=== PATIENT | female | born 1995 | race Hispanic/Latino ===

== ENCOUNTER 2017-01-17 07:57 | Emergency (ER) | payer MEDICAID, OTHER ==
[2017-01-17 08:22] VITALS: TEMP 98.2
[2017-01-17 08:42] VITALS: BMI 36.6
[2017-01-17] MEDS ORDERED: Sodium Chloride 0.9% 1,000 ML IV STA (09:09)
[2017-01-17 10:10] LABS: BASO # 0.01 K/mm3 (0.0-2.0); BASO % 0.1 % (0.0-3.0); EOS # 0.1 (0.0-0.7); EOS % 0.8 % (1.5-5.0); GRAN # 9.97 (1.4-6.5); GRAN % 86.3 % (50.0-68.0); HEMOGLOBIN 9.4 gm/dL (12.0-16.0); LYMPH # 0.7 (1.2-3.4); LYMPH % 6.2 % (22.0-35.0); MEAN CELL VOLUME 52.5 fL (80.0-105.0); MEAN CORPUSCULAR HGB CONC 28.7 g/dl (31.0-37.0); MONO # 0.8 (0.1-0.6); MONO % 6.6 % (1.0-6.0); PLATELET COUNT 474 10^3/uL (120.0-450.0); RBC 6.25 10^6/uL (3.5-6.1); RED CELL DISTRIBUTION WIDTH 22.9 % (11.5-14.5); WHITE BLOOD COUNT 11.6 10^3/ul (4.5-11.0)
[2017-01-17 10:19] LABS: ALB/GLOB RATIO 1.1 (1.1-1.8); ALBUMIN 4.3 g/dL (3.0-4.8); ALT/SGPT 29 U/L (7-56); AST/SGOT 29 U/L (15-39); BLOOD UREA NITROGEN 15 mg/dL (7-21); CALCIUM 9.2 mg/dL (8.4-10.5); GFR AFRICAN-AMERICAN > 60; GFR NON-AFRICAN AMERICAN > 60; LIPASE 57 U/L (23-300)
[2017-01-17 10:20] LABS: INR 0.98 (0.93-1.08); PARTIAL THROMBOPLASTIN TIME 24.7 Seconds (23.7-30.8); PROTHROMBIN TIME 10.6 Seconds (9.9-11.8)
[2017-01-17 10:21] LABS: URINE BILIRUBIN NEGATIVE (NEGATIVE); URINE BLOOD NEGATIVE (NEGATIVE); URINE GLUCOSE (UA) NEGATIVE (NEGATIVE); URINE LEUKOCYTE ESTERASE NEGATIVE Leu/uL (NEGATIVE); URINE NITRATE NEGATIVE (NEGATIVE); URINE PROTEIN TRACE mg/dL (<30 mg/dL); URINE UROBILINOGEN 0.2 E.U./dL (<1 E.U./dL)
--- NOTE | 2017-01-17 10:21 | ED PDOC ---
Arrival/HPI - General Chief Complaint: GI Problem Time Seen by Provider: 01/17/17 09:09 Historian: Patient - History of Present Illness Narrative History of Present Illness (Text): 01/17/17 10:18 21yo female with no PMHx present with complaint of campy abdominal pain, nonbloody/nonbillious vomiting/diarrhea x 7 since 0200am. She denies fever, chills, urinary symptoms,melena, hematochezia, hematuria, chest pain, SOB, back pain, sick contact, travel. Past Medical History - Provider Review Nursing Documentation Reviewed: Yes - Past History Past History: No Previous - Infectious Disease Hx of Infectious Diseases: None - Tetanus Immunization Tetanus Immunization: Up to Date - Reproductive Menopause: No - Cardiac Hx Cardiac Disorders: No - Pulmonary Hx Respiratory Disorders: No - Neurological Hx Neurological Disorder: No - HEENT Hx HEENT Disorder: No - Renal Hx Renal Disorder: No - Endocrine/Metabolic Hx Endocrine Disorders: No - Hematological/Oncological Hx Blood Disorders: No - Integumentary Hx Dermatological Disorder: No - Musculoskeletal/Rheumatological Hx Musculoskeletal Disorders: No - Gastrointestinal Hx Gastrointestinal Disorders: No - Genitourinary/Gynecological Hx Genitourinary Disorders: No - Psychiatric Hx Depression: No Hx Emotional Abuse: No Hx Physical Abuse: No Hx Substance Use: No - Past Surgical History Past Surgical History: No Previous - Surgical History Hx Tonsillectomy: Yes - Anesthesia Hx Anesthesia: No Hx Anesthesia Reactions: No Hx Malignant Hyperthermia: No - Suicidal Assessment Feels Threatened In Home Enviroment: No Family/Social History - Physician Review Nursing Documentation Reviewed: Yes Family/Social History: Unknown Family HX Smoking Status: Light Smoker < 10 Cigarettes Daily Hx Alcohol Use: Yes Hx Substance Use: No Hx Substance Use Treatment: No Allergies/Home Meds Allergies/Adverse Reactions: Allergies No Known Allergies Allergy (Verified 01/17/17 08:44) Review of Systems - Physician Review All systems were reviewed & negative as marked: Yes - Review of Systems Constitutional: Normal Eyes: Normal ENT: Normal Respiratory: Normal Cardiovascular: Normal Gastrointestinal: Abdominal Pain, Diarrhea, Nausea, Vomiting. absent: Constipation, Hematochezia, Hematemesis Genitourinary Female: Normal Musculoskeletal: Normal Skin: Normal Neurological: Normal Endocrine: Normal Hemo/Lymphatic: Normal Psychiatric: Normal Physical Exam Vital Signs Reviewed: Yes Vital Signs Temp Pulse Resp BP Pulse Ox 01/17/17 11:57 83 17 115/54 L 100 01/17/17 08:38 98.2 F 116 H 16 112/74 99 01/17/17 08:21 98.2 F 111 H 18 112/74 99 Temperature: Afebrile Blood Pressure: Normal Pulse: Tachycardic Respiratory Rate: Normal Appearance: Positive for: Well-Appearing, Non-Toxic, Comfortable Pain Distress: None Mental Status: Positive for: Alert and Oriented X 3 - Systems Exam Head: Present: Atraumatic, Normocephalic Pupils: Present: PERRL Extroacular Muscles: Present: EOMI Conjunctiva: Present: Normal Mouth: Present: Moist Mucous Membranes Neck: Present: Normal Range of Motion Respiratory/Chest: Present: Clear to Auscultation, Good Air Exchange. No: Respiratory Distress, Accessory Muscle Use Cardiovascular: Present: Regular Rate and Rhythm, Normal S1, S2. No: Murmurs Abdomen: Present: Tenderness (Epigastric tenderness), Normal Bowel Sounds, Other (Soft\). No: Distention, Peritoneal Signs, Rebound, Guarding, McBurney's Point Tender, Rovsing's Sign Present Back: Present: Normal Inspection Upper Extremity: Present: Normal Inspection. No: Cyanosis, Edema Lower Extremity: Present: Normal Inspection. No: Edema Neurological: Present: GCS=15, CN II-XII Intact, Speech Normal Skin: Present: Warm, Dry, Normal Color. No: Rashes Psychiatric: Present: Alert, Oriented x 3, Normal Insight, Normal Concentration Medical Decision Making ED Course and Treatment: 01/17/17 12:13 PT in ED with stated history. She was treated with Pepcid, Toradol and 1L of NS in ED. Lab was ordered and reviewed. No significant leukocytosis. On re evaluation pt states her symptoms resolved. She was noted to tolerate PO challenge in ED. Repeat abdominal exam was benign. She will be DC home. Symptoms likely secondary to viral enteritis. Advised to follow BALND diet. Rx of caralfate, pepcid and Zofran given. Referred to her PMD. TRT ED for any new or worsening symptoms - Lab Interpretations Lab Results: 01/17/17 09:55 01/17/17 09:55 Lab Results 01/17/17 10:05: Urine Color Yellow, Urine Appearance Clear, Urine pH 6.0, Ur Specific [place] 1.025, Urine Protein Trace H, Urine Glucose (UA) Negative, Urine Ketones Negative, Urine Blood Negative, Urine Nitrate Negative, Urine Bilirubin Negative, Urine Urobilinogen 0.2, Ur Leukocyte Esterase Negative, Urine RBC 0 - 2, Urine WBC 1 - 3, Ur Epithelial Cells 4 - 5, Urine Bacteria Few 01/17/17 09:55: Sodium 142, Potassium 4.5, Chloride 104, Carbon Dioxide 27, Anion Gap 16, BUN 15, Creatinine 0.6, Est GFR ( Amer) > 60, Est GFR (Non- Af Amer) > 60, Random Glucose 104, Calcium 9.2, Total Bilirubin 0.9, AST 29, ALT 29, Alkaline Phosphatase 105, Total Protein 8.2, Albumin 4.3, Globulin 3.9, Albumin/Globulin Ratio 1.1, Lipase 57 01/17/17 09:55: PT 10.6, INR 0.98, APTT 24.7 01/17/17 09:55: WBC 11.6 H, RBC 6.25 H, Hgb 9.4 L, Hct 32.8 L, MCV 52.5 L, MCH 15.0 L, MCHC 28.7 L, RDW 22.9 H, Plt Count 474 H, Gran % 86.3 H, Lymph % (Auto) 6.2 L, [place] % (Auto) 6.6 H, Eos % (Auto) 0.8 L, Baso % (Auto) 0.1, Gran # 9.97 H , Lymph # 0.7 L, [place] # 0.8 H, Eos # 0.1, Baso # 0.01 - Medication Orders Current Medication Orders: Discontinued Medications Famotidine (Pepcid) 20 mg IVP STAT STA Stop: 01/17/17 09:10 Last Admin: 01/17/17 09:55 Dose: 20 mg Sodium Chloride (Sodium Chloride 0.9%) 1,000 mls @ 1,000 mls/hr IV .Q1H STA Stop: 01/17/17 10:08 Last Admin: 01/17/17 10:02 Dose: 1,000 mls/hr Ketorolac Tromethamine (Toradol) 30 mg IVP STAT STA Stop: 01/17/17 09:10 Last Admin: 01/17/17 10:22 Dose: 30 mg Ondansetron HCl (Zofran Inj) 4 mg IVP STAT STA Stop: 01/17/17 09:10 Last Admin: 01/17/17 09:55 Dose: 4 mg Disposition/Present on Arrival - Present on Arrival Any Indicators Present on Arrival: No History of DVT/PE: No History of Uncontrolled Diabetes: No Urinary Catheter: No History of Decub. Ulcer: No History Surgical Site Infection Following: None - Disposition Have Diagnosis and Disposition been Completed?: Yes Diagnosis: Abdominal pain, Vomiting and diarrhea, Anemia Disposition: HOME/ ROUTINE Disposition Time: 11:35 Patient Plan: Discharge Condition: STABLE Discharge Instructions (ExitCare): Acute Nausea and Vomiting (ED), Abdominal Pain (ED) Additional Instructions: Follow a BLAND diet for 24 -48hrs Follow up with your Doctor Return to ED for any new or worsening symptoms Prescriptions: Famotidine [Pepcid] 40 mg PO DAILY #15 tab Ondansetron ODT [Zofran ODT] 4 mg PO Q6 #7 odt Sucralfate [Carafate] 1 gm PO DAILY #10 tablet Referrals: PCP,NO [Primary Care Provider] - Follow up with primary
[2017-01-17 10:23] LABS: URINE APPEARANCE CLEAR (CLEAR); URINE COLOR YELLOW (YELLOW)
[2017-01-17 10:31] LABS: URINE RBC 0 - 2 /hpf (0-2)
[2017-01-17 10:32] LABS: URINE BACTERIA FEW (NEG)
[2017-01-17 11:57] VITALS: BP 115/54; PULSE 83; RESP 17; O2SAT 100
== END 2017-01-17 12:10 | disposition home or self-care (01) ==
LOC: ED 07:57
DX: D64.9 Anemia, unspecified (principal); R19.7 Diarrhea, unspecified; R10.9 Unspecified abdominal pain
CPT/HCPCS: 80053; 81001; 83690; 85025; 85610; 85730; 96361; 96374; 96375; 99284; J1885; J2405; J7040

== ENCOUNTER 2018-08-16 14:06 | Emergency (ER) | payer MEDICAID, OTHER ==
[2018-08-16 14:06] VITALS: BMI 36.6
[2018-08-16 14:36] VITALS: RESP 18; TEMP 98.7
[2018-08-16] MEDS ORDERED: TDAP Vaccine 0.5 mL Syr IM ONE (14:59)
[2018-08-16] MEDS ORDERED: Amoxicillin-Clav 875-125 mg Tab PO STA (14:59)
--- NOTE | 2018-08-16 15:08 | ED PDOC ---
Arrival/HPI - General Chief Complaint: Abnormal Skin Integrity Historian: Patient - History of Present Illness Narrative History of Present Illness (Text): 08/16/18 15:00 23 year old female, no significant pmh, nkda, last tetanus over 10 years ago, complaining of lower lip laceration x 10 hours. Pt. stated that she was intoxicated earlier this morning around 4am, fall and sustained the lt. lower lip laceration, went home to sleep and woke up just now for wound care. Pt. stated that she has no neck/jaw/facial/head pain, no numbness or tingling, no night sweat, no rash, no numbness or tingling, no palpitation, able to recall the whole event, no other medical or psychological complaints. Past Medical History - Provider Review Nursing Documentation Reviewed: Yes - Past History Past History: No Previous - Infectious Disease Hx of Infectious Diseases: None - Tetanus Immunization Tetanus Immunization: Up to Date - Reproductive Currently : No - Cardiac Hx Cardiac Disorders: No - Pulmonary Hx Respiratory Disorders: No - Neurological Hx Neurological Disorder: No - HEENT Hx HEENT Disorder: No - Renal Hx Renal Disorder: No - Endocrine/Metabolic Hx Endocrine Disorders: No - Hematological/Oncological Hx Blood Disorders: No - Integumentary Hx Dermatological Disorder: No - Musculoskeletal/Rheumatological Hx Musculoskeletal Disorders: No - Gastrointestinal Hx Gastrointestinal Disorders: No - Genitourinary/Gynecological Hx Genitourinary Disorders: No - Psychiatric Hx Depression: No Hx Emotional Abuse: No Hx Physical Abuse: No Hx Substance Use: No - Past Surgical History Past Surgical History: No Previous - Surgical History Hx Tonsillectomy: Yes - Anesthesia Hx Anesthesia: No Hx Anesthesia Reactions: No Hx Malignant Hyperthermia: No - Suicidal Assessment Feels Threatened In Home Enviroment: No Family/Social History - Physician Review Nursing Documentation Reviewed: Yes Family/Social History: Unknown Family HX Smoking Status: Light Smoker < 10 Cigarettes Daily Hx Alcohol Use: Yes Hx Substance Use: No Hx Substance Use Treatment: No Allergies/Home Meds Allergies/Adverse Reactions: Allergies No Known Allergies Allergy (Verified 01/17/17 08:44) Review of Systems - Review of Systems Constitutional: absent: Fatigue, Fevers Eyes: absent: Vision Changes ENT: absent: Hearing Changes Respiratory: absent: SOB, Cough Cardiovascular: absent: Chest Pain Gastrointestinal: absent: Abdominal Pain, Diarrhea, Nausea, Vomiting Musculoskeletal: absent: Arthralgias Skin: Laceration. absent: Rash, Pruritis, Skin Lesions, Abscess, Ulcer, Cellulitis Neurological: absent: Headache, Dizziness Psychiatric: absent: Anxiety, Depression, Suicidal Ideation Physical Exam Vital Signs Reviewed: Yes Vital Signs Temp Pulse Resp BP Pulse Ox 08/16/18 14:06 98.7 F 99 H 18 109/66 100 Temperature: Afebrile Blood Pressure: Normal Pulse: Regular Respiratory Rate: Normal Appearance: Positive for: Well-Appearing, Non-Toxic, Comfortable Pain Distress: Mild Mental Status: Positive for: Alert and Oriented X 3 - Systems Exam Head: Present: Atraumatic, Normocephalic, Other (no facial bony tenderness or swelling). No: Tenderness, Contusion, Swelling, Ecchymosis, Abrasion, Laceration Pupils: Present: PERRL Extroacular Muscles: Present: EOMI Conjunctiva: Present: Normal Ears: Present: NORMAL TM, Normal Canal. No: Erythema Mouth: Present: Moist Mucous Membranes, Normal Teeth. No: Normal Lips (visible lt. lower lip inner and outer lip regions with approx. v-shaped laceration approx. 2cm noted involving vermilion border as this wound is through and through with no active bleeding, no visible foreign bodies. ), Normal Tounge Pharnyx: No: ERYTHEMA, EXUDATE, TONSILS ENLARGED Nose (External): Present: Atraumatic. No: Abrasion, Contusion, Laceration, Lesions Nose (Internal): Present: Normal Inspection, No Active Bleeding. No: Rhinorrhea, Septal Hematoma, Epistaxis Neck: Present: Normal Range of Motion, Trachea Midline. No: MIDLINE TENDERNESS, Lymphadenopathy Respiratory/Chest: Present: Clear to Auscultation, Good Air Exchange. No: Respiratory Distress, Accessory Muscle Use Cardiovascular: Present: Regular Rate and Rhythm, Normal S1, S2. No: Murmurs Abdomen: No: Tenderness, Distention, Peritoneal Signs Back: Present: Normal Inspection Upper Extremity: Present: Normal Inspection. No: Cyanosis, Edema Lower Extremity: Present: Normal Inspection. No: Edema Neurological: Present: GCS=15, CN II-XII Intact, Speech Normal Skin: Present: Warm, Dry, Normal Color. No: Rashes Psychiatric: Present: Alert, Oriented x 3, Normal Insight, Normal Concentration Medical Decision Making ED Course and Treatment: 08/16/18 15:22 -urine hcg -tdap/augmentin -I spoke to Dr. Brooks, plastic surgeon, will come to evaluate patient. 08/16/18 16:16 -Urine hcg is negative -Discussed with Dr. Ríos and examined the patient together, he agreed on this plan of care -Dr. Brooks came to evaluate the patient, offered the patient for closure but the patient declined as she has to pay out of pocket. Dr. Brooks recommend ER closure the wound or secondary healing which the patient request to have the wound suture which she understands the risk of infection and scarring. -PROCEDURE: LACERATION REPAIR Performed by the emergency provider Location: lt. lower inner and outter through through laceration Length: 2 cm inner and outer with vermilion border Description: no foreign bodies, visible white pale border wound noted. Distal CMS: Normal. No deficits. Neurovascularly intact. Anesthesia: Lidocaine 1% performed by Dr. Brooks with mandible block performed Preparation: The wound was cleaned with NS 1000cc and with with Betadine. The area was prepped and draped in the usual sterile fashion. Exploration: The wound was explored and no foreign bodies were found. Procedure: The wound was closed with 5-0 chromic gout with old dirty wound edge trimmed off with scissor and clean with gauze. There was {good / appropriate / adequate / loose} approximation. In total, 6 were used with 3 inner and 3 outter lips. Post-Procedure: Good closure and hemostasis. The patient tolerated the procedure well and there were no complications. CSM remains intact. Post procedure dressing applied. -Discharge home with augmentin, bacitracin oinment to apply to the chin/outter skin region, motrin for pain, suture is absorble, avoid eating spicy/fried/grilled food, follow up with your own pmd and plastic surgeon in 2 days, return to the ER for any new or worsening signs or symptoms including wound check if you don't have pmd. - PA / STOCK HANDLER FLOORPERSON / Resident Statement / has reviewed & agrees with the documentation as recorded. /DO has examined the patient and agrees with the treatment plan. Disposition/Present on Arrival - Present on Arrival Any Indicators Present on Arrival: No History of DVT/PE: No History of Uncontrolled Diabetes: No Urinary Catheter: No History of Decub. Ulcer: No History Surgical Site Infection Following: None - Disposition Have Diagnosis and Disposition been Completed?: Yes Diagnosis: Lip laceration Disposition: HOME/ ROUTINE Disposition Time: 15:23 Patient Plan: Discharge Patient Problems: Current Active Problems Problem Status Onset Lip laceration Acute Condition: IMPROVED Additional Instructions: Discharge home with augmentin, bacitracin oinment to apply to the chin/outter skin region, motrin for pain, suture is absorble, avoid eating spicy/fried/grilled food, follow up with your own pmd and plastic surgeon in 2 days, return to the ER for any new or worsening signs or symptoms including wound check if you don't have pmd. Prescriptions: Amoxicillin/Clavulanate [Augmentin 875 MG-125 MG] 1 tab PO BID #14 tab Bacitracin Ointment [Bacitracin] 1 appful TOP BID #15 g Ibuprofen [Motrin Tab] 600 mg PO QID PRN #30 tab PRN Reason: Other Referrals: Sonam Brooks MD [Staff Provider] - Follow up with primary [facility] – [place], [place] [Outside] - Follow up with primary Forms: [employer] (Brazilian), WORK NOTE
[2018-08-16 15:35] VITALS: BP 110/75; PULSE 89; O2SAT 99
[2018-08-16] MEDS ORDERED: Bacitracin 500 Units/gm Oint Foilpak UD ONE (16:10)
== END 2018-08-16 16:27 | disposition home or self-care (01) ==
LOC: ED 14:06
DX: S01.511A Laceration without foreign body of lip, initial encounter (principal); W19.XXXA Unspecified fall, initial encounter; Y92.009 Unspecified place in unspecified non-institutional (private) residence as the place of occurrence of the external cause; Z23 Encounter for immunization; F17.210 Nicotine dependence, cigarettes, uncomplicated

== ENCOUNTER 2018-08-20 15:17 | Emergency (ER) | payer MEDICAID, OTHER ==
[2018-08-20 15:18] VITALS: BMI 36.6
[2018-08-20 16:29] VITALS: RESP 18; TEMP 98; O2SAT 100
--- NOTE | 2018-08-20 17:06 | ED PDOC ---
Arrival/HPI - General Chief Complaint: Suture/Staple Removal Time Seen by Provider: 08/20/18 15:58 Historian: Patient - History of Present Illness Narrative History of Present Illness (Text): 08/20/18 17:03 23 y/o female, s/p sutured about 4 days ago for the through and through but didn't stay for her augmentin. Pt. stated that the wound healing well, feeling well, eating and drinking well, no leaking from the sutured wound, no night sweat, no rash, no dizziness, no other medical or psychological complaints. Past Medical History - Provider Review Nursing Documentation Reviewed: Yes - Past History Past History: No Previous - Infectious Disease Hx of Infectious Diseases: None - Tetanus Immunization Tetanus Immunization: Up to Date - Reproductive Currently : No - Cardiac Hx Cardiac Disorders: No - Pulmonary Hx Respiratory Disorders: No - Neurological Hx Neurological Disorder: No - HEENT Hx HEENT Disorder: No - Renal Hx Renal Disorder: No - Endocrine/Metabolic Hx Endocrine Disorders: No - Hematological/Oncological Hx Blood Disorders: No - Integumentary Hx Dermatological Disorder: No - Musculoskeletal/Rheumatological Hx Musculoskeletal Disorders: No - Gastrointestinal Hx Gastrointestinal Disorders: No - Genitourinary/Gynecological Hx Genitourinary Disorders: No - Psychiatric Hx Substance Use: No - Past Surgical History Past Surgical History: No Previous - Surgical History Hx Tonsillectomy: Yes - Anesthesia Hx Anesthesia: No Hx Anesthesia Reactions: No Hx Malignant Hyperthermia: No - Suicidal Assessment Feels Threatened In Home Enviroment: No Family/Social History - Physician Review Nursing Documentation Reviewed: Yes Family/Social History: Unknown Family HX Smoking Status: Light Smoker < 10 Cigarettes Daily Hx Alcohol Use: Yes Hx Substance Use: No Hx Substance Use Treatment: No Allergies/Home Meds Allergies/Adverse Reactions: Allergies No Known Allergies Allergy (Verified 01/17/17 08:44) Review of Systems - Review of Systems Constitutional: absent: Fatigue, Fevers Eyes: absent: Vision Changes ENT: absent: Hearing Changes Respiratory: absent: SOB, Cough Cardiovascular: absent: Chest Pain Gastrointestinal: absent: Abdominal Pain, Nausea, Vomiting Skin: Laceration (sutured). absent: Rash, Pruritis Neurological: absent: Headache, Dizziness Psychiatric: absent: Anxiety, Depression, Suicidal Ideation Physical Exam Vital Signs Reviewed: Yes Vital Signs Temp Pulse Resp BP Pulse Ox 08/20/18 15:18 98 F 80 18 134/80 100 Temperature: Afebrile Blood Pressure: Normal Pulse: Regular Respiratory Rate: Normal Appearance: Positive for: Well-Appearing, Non-Toxic, Comfortable Pain Distress: None Mental Status: Positive for: Alert and Oriented X 3 - Systems Exam Head: Present: Atraumatic, Normocephalic Pupils: Present: PERRL Extroacular Muscles: Present: EOMI Conjunctiva: Present: Normal Mouth: Present: Moist Mucous Membranes. No: Normal Lips (lt. inner lower lip visible healing suture wound with no abscess/cellulitis/leaking, no through and through and throw. Lt. lower outter lip visible healing and sutured wound with no celllulitis or ulcers, all sutures are chromic gut absorbable sutures. ) Neck: Present: Normal Range of Motion Respiratory/Chest: Present: Clear to Auscultation, Good Air Exchange. No: Respiratory Distress, Accessory Muscle Use Cardiovascular: Present: Regular Rate and Rhythm, Normal S1, S2. No: Murmurs Abdomen: No: Tenderness, Distention, Peritoneal Signs Back: Present: Normal Inspection Upper Extremity: Present: Normal Inspection. No: Cyanosis, Edema Lower Extremity: Present: Normal Inspection. No: Edema Neurological: Present: GCS=15, CN II-XII Intact, Speech Normal Skin: Present: Warm, Dry, Normal Color. No: Rashes Psychiatric: Present: Alert, Oriented x 3, Normal Insight, Normal Concentration Medical Decision Making ED Course and Treatment: 08/20/18 17:06 -wound healing well, no wound dehescence -Discharge home with augmentin, follow up with your own pmd within 2 days, return to the ER for any new or worsening signs or symptoms. - PA / HOSPICE NURSE / Resident Statement MD/DO has reviewed & agrees with the documentation as recorded. Disposition/Present on Arrival - Present on Arrival Any Indicators Present on Arrival: No History of DVT/PE: No History of Uncontrolled Diabetes: No Urinary Catheter: No History of Decub. Ulcer: No History Surgical Site Infection Following: None - Disposition Have Diagnosis and Disposition been Completed?: Yes Diagnosis: Visit for wound check Disposition: HOME/ ROUTINE Disposition Time: 17:07 Patient Plan: Discharge Patient Problems: Current Active Problems Problem Status Onset Visit for wound check Acute Condition: GOOD Additional Instructions: -Discharge home with augmentin, follow up with your own pmd within 2 days, return to the ER for any new or worsening signs or symptoms. Prescriptions: Amoxicillin/Clavulanate [Augmentin 875 MG-125 MG] 1 tab PO BID #14 tab Referrals: PCP,NO [Primary Care Provider] - Follow up with primary Sonam Brooks MD [Staff Provider] - Follow up with primary Forms: [facility] ([place]uanian), WORK NOTE
[2018-08-20 17:24] VITALS: BP 128/80; PULSE 76
== END 2018-08-20 17:18 | disposition home or self-care (01) ==
LOC: ED 15:17
DX: Z48.00 Encounter for change or removal of nonsurgical wound dressing (principal); F17.210 Nicotine dependence, cigarettes, uncomplicated